=== PATIENT | female | born 1990 | race Caucasian/White ===

== ENCOUNTER 2022-05-10 01:22 | Inpatient (IN) ==
[~2022-05-10 01:22] MED LIST: Azithromycin 500 MG in 0.9 % Sodium Chloride 250 ML IVPB PRN; CeFAZolin 2,000 MG/120 ML BAG IVPB ONE; Famotidine 20 MG/2 ML VIAL IVP ONE; Metoclopramide 10 MG/2 ML VIAL IVP ONE; Oxytocin 30 UNIT/503 ML BAG IVC SCH; Ringers Solution, Lactated 1,000 ML IVC SCH
[2022-05-10 02:03] LABS: Amphetamine Screen,Urine Negative ng/mL (Cutoff=1000); Barbiturate Screen,Urine Negative ng/mL (Cutoff=200); Benzodiazepines Screen,Urine Negative ng/mL (Cutoff=200); Cannabinoid Screen,Urine Negative ng/mL (Cutoff = 50); Cocaine Screen,Urine Negative ng/mL (Cutoff= 300); Opiate Screen,Urine Negative ng/mL (Cutoff=300); Phencyclidine Screen,Urine Negative ng/mL (Cutoff=25)
[2022-05-10 02:10] LABS: Basophils % 0.4 %; Eosinophils # 0.1 K/mcL (0.0-0.6); Eosinophils % 1.4 %; Hematocrit 37.3 % (35.3-44.9); Hemoglobin 12.7 g/dL (11.5-15.4); Immature Granulocytes % 0.2 % (0-4); Immature Platelets 17.3 % (1.1-6.1); Lymphocytes # 2.4 K/mcL (0.6-4.6); Lymphocytes % 25.8 %; Mean Corpuscular Hemoglobin 32.1 pg (28.0-33.3); Mean Corpuscular Volume 94.2 fL (83.0-100.0); Mean Platelet Volume 12.6 fL (9.4-12.4); Monocytes # 0.6 K/mcL (0.0-1.3); Monocytes % 6.8 %; Neutrophils # 6.1 K/mcL (1.6-8.9); Platelet Count 150 K/mcL (140-400); Red Blood Count 3.96 M/mcL (3.82-4.97); Segmented Neutrophils % 65.4 %; White Blood Count 9.3 K/mcL (4.3-11.1)
[2022-05-10] MEDS ORDERED: *HR* FentaNYL (PF) 100 MCG/2 ML VIAL ONE (02:14)
[2022-05-10] MEDS ORDERED: *HR* Morphine Sulfate/PF 10 MG/10 ML AMPUL ONE (02:14)
[2022-05-10] MEDS ORDERED: Ondansetron 4 MG/2 ML VIAL ONE (02:15)
[2022-05-10] MEDS ORDERED: EPHEDrine sulfate 50 MG/10 ML VIAL IVP ONE (02:29)
[2022-05-10] MEDS ORDERED: Acetaminophen IV 1,000 MG/100 ML BAG IVPB ONE (02:31)
[2022-05-10] MEDS ORDERED: Ketorolac 30 MG/ML VIAL ONE (03:09)
[2022-05-10] MEDS ORDERED: Rho Immune Globulin 1,500 UNIT SYRINGE IM ONE (05:41)
[2022-05-10] MEDS ORDERED: *HR* OxyCODONE Immed Rel 5 MG TABLET PO PRN (05:41)
[2022-05-10] MEDS ORDERED: Oxytocin 30 UNIT/503 ML BAG IVC SCH (05:41)
[2022-05-10] MEDS ORDERED: Metoclopramide 10 MG/2 ML VIAL IVP PRN (05:41)
[2022-05-10] MEDS ORDERED: OXYTOCIN/RINGERS LACTATE 10 UNIT/166.6 ML BAG IVC ONE (05:41)
[2022-05-10] MEDS ORDERED: Ondansetron 4 MG/2 ML VIAL IVP PRN (05:41)
[2022-05-10] MEDS: Prenatal Vit/FA 1 EACH TABLET PO SCH (09:46)
[2022-05-10] MEDS: Simethicone 80 MG TAB.CHEW PO PRN ×2 (09:46→17:56)
[2022-05-10] MEDS: Ibuprofen 600 MG TABLET PO SCH ×3 (12:17→23:54)
[2022-05-10] MEDS: Acetaminophen 325 MG TABLET PO SCH ×3 (12:18→23:55)
[2022-05-10] MEDS ORDERED: Lanolin 7 G OINT...G. TP PRN (20:35)
[2022-05-10 23:58] VITALS: O2SAT 98
[2022-05-11 04:35] LABS: Basophils # 0.1 K/mcL (0.0-0.2); Basophils % 0.4 %; Eosinophils # 0.2 K/mcL (0.0-0.6); Eosinophils % 1.8 %; Hematocrit 36.9 % (35.3-44.9); Hemoglobin 12.2 g/dL (11.5-15.4); Immature Granulocytes % 0.4 % (0-4); Lymphocytes # 2.7 K/mcL (0.6-4.6); Mean Corpuscular HGB Conc 33.1 g/dL (31.6-35.5); Mean Corpuscular Hemoglobin 32.1 pg (28.0-33.3); Mean Corpuscular Volume 97.1 fL (83.0-100.0); Monocytes # 0.8 K/mcL (0.0-1.3); Monocytes % 6.6 %; Neutrophils # 7.6 K/mcL (1.6-8.9); Platelet Count 126 K/mcL (140-400); Red Cell Distribution Width 14.2 % (11.5-14.5); Segmented Neutrophils % 66.8 %; White Blood Count 11.4 K/mcL (4.3-11.1)
[2022-05-11] MEDS: Acetaminophen 325 MG TABLET PO SCH (06:43)
[2022-05-11] MEDS: Ibuprofen 600 MG TABLET PO SCH (06:43)
[2022-05-11 07:39] VITALS: BP 111/76; PULSE 58; TEMP 97.7
[2022-05-11] MEDS: Prenatal Vit/FA 1 EACH TABLET PO SCH (08:14)
== END 2022-05-11 10:53 | disposition home or self-care (01) | DRG 540 ==
LOC: 1NENULAB → 1NENUOBS 05:59
PROVIDERS: ADMIT Obstetrics & Gynecology; ATTEND Obstetrics & Gynecology